=== PATIENT | female | born 1985 | race Caucasian/White ===

== ENCOUNTER 2019-04-20 11:14 | Emergency (ER) | payer MEDICAID ==
[~2019-04-20] VITALS: Ht 160 cm; Wt 75.0 kg
[2019-04-20] MEDS ORDERED: KETOROLAC TROMETHAMINE 30 MG/ML VIAL IM ONE (12:45)
[2019-04-20] MEDS ORDERED: CYCLOBENZAPRINE HCL 10 MG TABLET PO ONE (12:45)
[2019-04-20 15:00] VITALS: BP 125/87
== END 2019-04-20 15:36 | disposition home or self-care (01) ==
LOC: EMS 11:16
DX: S39.012A Strain of muscle, fascia and tendon of lower back, initial encounter (principal); M25.562 Pain in left knee; X58.XXXA Exposure to other specified factors, initial encounter; Y93.89 Activity, other specified; Y92.89 Other specified places as the place of occurrence of the external cause; Y99.8 Other external cause status
CPT/HCPCS: 73562; 96372; 99283; J1885

== ENCOUNTER 2019-05-12 11:25 | Emergency (ER) | payer MEDICAID ==
[~2019-05-12] VITALS: Ht 157.5 cm; Wt 81.4 kg
[2019-05-12] MEDS ORDERED: PERTUSS(ACELL),DIPH,TET VAC/PF 0.5 ML VIAL IM ONE (13:00)
[2019-05-12 13:14] VITALS: BP 117/75
== END 2019-05-12 13:14 | disposition home or self-care (01) ==
LOC: EMS 11:26
DX: M25.562 Pain in left knee (principal); Z87.821 Personal history of retained foreign body fully removed
CPT/HCPCS: 90471; 90715